=== PATIENT | male | born 1980 | race Caucasian/White ===

== ENCOUNTER 2022-05-12 | Emergency (ER) | payer BC ==
[~2022-05-12] VITALS: Ht 172.7 cm; Wt 98.4 kg
[2022-05-12 00:08] VITALS: BP 116/70
--- NOTE | 2022-05-12 01:53 | NUR ---
Dr. Ron examining patient.
[2022-05-12] MEDS ORDERED: HYDR25SU91 RC (02:12)
[2022-05-12] MEDS ORDERED: BACI1PAC6 TP (02:12)
[2022-05-12 02:54] VITALS: BP 116/70
--- NOTE | 2022-05-12 02:55 | NUR ---
Patient discharged with v/s stable. Written and verbal after care instructions given and explained. Patient alert, oriented and verbalized understanding of instructions. Ambulatory with steady gait. All questions addressed prior to discharge. ID band removed. Patient advised to follow up with PMD. Rx of BACITRACIN ZINC AND HYDROCORTISONE ACETATE given. Patient educated on indication of medication including possible reaction and side effects. Opportunity to ask questions provided and answered.
== END 2022-05-12 02:50 | disposition home or self-care (01) ==
LOC: MED
DX: K64.9 Unspecified hemorrhoids (principal)
CPT/HCPCS: 99282

== ENCOUNTER 2022-08-27 16:31 | Emergency (ER) | payer BC ==
[~2022-08-27] VITALS: Ht 172.7 cm; Wt 104.8 kg
[~2022-08-27 16:31] MED LIST: BACI1PAC6 TP; HYDR25SU91 RC
[2022-08-27 16:34] VITALS: BP 152/62
--- NOTE | 2022-08-27 16:42 | NUR ---
Patient ambulated with steady gait to bed 5.
[2022-08-27 18:22] LABS: BASOPHILS % (AUTO) 0.4 % (0.0-2.0); EOSINOPHILS # (AUTO) 0.1 K/uL (0-0.4); EOSINOPHILS % (AUTO) 0.6 % (0.0-4.0); HEMATOCRIT 43.6 % (36-52); HEMOGLOBIN 15.6 g/dL (12.0-18.0); LYMPHOCYTES % (AUTO) 22.7 % (20.5-51.1); MEAN CORPUSCULAR HEMOGLOBIN 32 pg (27-31); MEAN CORPUSCULAR HGB CONC 36 g/dL (33-37); MEAN CORPUSCULAR VOLUME 90.3 fL (80-94); MONOCYTES # (AUTO) 0.7 K/uL (0.8-1.0); MONOCYTES % (AUTO) 7.6 % (1.7-9.3); NEUTROPHILS % (AUTO) 68.7 % (42.2-75.2); PLATELET COUNT (AUTO) 205 K/uL (140-450); RED BLOOD CELL COUNT(AUTO) 4.83 MIL/uL (4.20-6.10); RED CELL DISTRIBUTION WIDTH 13.9 % (11.6-13.7); WHITE BLOOD COUNT (AUTO) 8.8 K/uL (4.8-10.8)
--- NOTE | 2022-08-27 18:24 | NUR ---
42/M PRESENTS TO ED WITH C/O CHEST PAIN RADIATING TO BACK, COUGH AND SOB X1 WEEK. PATIENT REPORTS HE FELT SYMPTOMS WORSENING AFTER WORKING OUT TODAY, PATIENT STATES NEGATIVE AT HOME COVID TEST TODAY. DENIES INJURY OR TRAUMA BUT STATES AT WORK IS REQUIRED TO MOVE BOXES, PATIENT DENIES N/V/D, FEVERS, CHILLS, DENIES RECENT SICK CONTACTS.
[2022-08-27 18:40] LABS: ALBUMIN 3.9 g/dL (3.4-5.0); ASPARTATE AMINOTRANSFERASE 31 U/L (15-37); CARBON DIOXIDE 25.8 mmol/L (21-32); CHLORIDE 105 mmol/L (98-107); CREATININE 1.1 mg/dL (0.6-1.3); GFR ARICAN-AMERICAN 94 mL/min (>90); GLUCOSE 115 mg/dL (74-106); POTASSIUM 3.8 mmol/L (3.5-5.1); SODIUM SERUM 140 mmol/L (136-145); TOTAL BILIRUBIN 0.6 mg/dL (0.0-1.0); UREA NITROGEN, BLOOD 11 mg/dL (7-18)
--- NOTE | 2022-08-27 19:18 | NUR ---
Pt report given to AMENA ESPANA. Transfer of care at this time.
[2022-08-27] MEDS ORDERED: methylPREDNISolone SS 125 MG/2 ML VIAL IVP ONE (19:30)
[2022-08-27] MEDS ORDERED: PRED20TA5 PO (19:49)
[2022-08-27] MEDS ORDERED: IBUP-2809 PO (19:50)
--- NOTE | 2022-08-27 20:18 | NUR ---
PT WAITING IN LOBBY FOR RESULT OF REPEAT LABS.
--- NOTE | 2022-08-27 20:23 | NUR ---
PT IS IN WAITING ROOM PENDING TROP RESULTS AND DISPO PAPERWORK
--- NOTE | 2022-08-27 20:26 | NUR ---
C/O COUGH AND SOB X1WEEK . SPO2 99% RA. DENIES SOB OR CP AT THIS TIME. PT IS A&OX4 SITTING UP IN CHAIR SPEAKING IN FULL SENTENCES. SKIN WARM DRY AND INTACT. SECOND TROP DRAWN , PENDING RESULTS. NKDA NO HX
[2022-08-27 20:50] VITALS: BP 122/67
--- NOTE | 2022-08-27 20:50 | NUR ---
Patient discharged with v/s stable. Written and verbal after care instructions given and explained. Patient alert, oriented and verbalized understanding of instructions. Ambulatory with steady gait. All questions addressed prior to discharge. ID band removed. Patient advised to follow up with PMD. Rx of PREDNISONE, IBUPROFEN given. Patient educated on indication of medication including possible reaction and side effects. Opportunity to ask questions provided and answered.
== END 2022-08-27 20:50 | disposition home or self-care (01) ==
LOC: MED 16:31
DX: J40 Bronchitis, not specified as acute or chronic (principal); F17.210 Nicotine dependence, cigarettes, uncomplicated; Z71.6 Tobacco abuse counseling
CPT/HCPCS: 36415; 71045; 80053; 84484; 85025; 85379; 93005; 96374; 99285; J2930; Q0092

== ENCOUNTER 2023-06-23 19:55 | Emergency (ER) | payer BC ==
[~2023-06-23] VITALS: Ht 170.2 cm; Wt 103.4 kg
[~2023-06-23 19:55] MED LIST changes: +BACI-418 TP; -BACI1PAC6 TP; +IBUP-2809 PO; +PRED20TA5 PO
[2023-06-23 20:00] VITALS: BP 139/77; PULSE 90; RESP 16; TEMP 97.6; O2SAT 97
[2023-06-23] MEDS ORDERED: KETOROLAC 30 MG/ML VIAL IVP ONE (21:00)
[2023-06-23] MEDS ORDERED: NACL 0.9% 1,000 ML IV SCH (21:00)
[2023-06-23 21:48] LABS: BASOPHILS % (AUTO) 0.4 % (0.0-2.0); EOSINOPHILS # (AUTO) 0.1 K/uL (0-0.4); EOSINOPHILS % (AUTO) 0.6 % (0.0-4.0); HEMATOCRIT 40.2 % (36-52); LYMPHOCYTES # (AUTO) 2.6 K/uL (2.0-11.5); LYMPHOCYTES % (AUTO) 25.7 % (20.5-51.1); MEAN CORPUSCULAR HEMOGLOBIN 32 pg (27-31); MEAN CORPUSCULAR HGB CONC 35 g/dL (33-37); MEAN CORPUSCULAR VOLUME 91.9 fL (80-94); MONOCYTES # (AUTO) 0.8 K/uL (0.8-1.0); MONOCYTES % (AUTO) 7.7 % (1.7-9.3); NEUTROPHILS # (AUTO) 6.7 K/uL (1.8-7.7); NEUTROPHILS % (AUTO) 65.6 % (42.2-75.2); PLATELET COUNT (AUTO) 188 K/uL (140-450); RED BLOOD CELL COUNT(AUTO) 4.37 MIL/uL (4.20-6.10); RED CELL DISTRIBUTION WIDTH 14.1 % (11.6-13.7); WHITE BLOOD COUNT (AUTO) 10.2 K/uL (4.8-10.8)
[2023-06-23 21:48] LABS: APPEARANCE,URINE CLEAR (CLEAR); BILIRUBIN,URINE NEGATIVE (NEGATIVE); BLOOD, URINE NEGATIVE (NEGATIVE); COLOR,URINE YELLOW (YELLOW); LEUKOCYTE ESTERASE ,URINE NEGATIVE (NEGATIVE); NITRITE, URINE NEGATIVE (NEGATIVE); PH,URINE 6.5 (5.0-9.0); PROTEIN,URINE NEGATIVE (NEGATIVE); UGLUCOSE NEGATIVE (NEGATIVE); UROBILINOGEN,URINE 0.2 EU/dL (0.2 - 1)
[2023-06-23 21:59] LABS: ALBUMIN 3.8 g/dL (3.4-5.0); ANION GAP 13.5 (8-16); CALCIUM 8.8 mg/dL (8.5-10.1); CARBON DIOXIDE 27.4 mmol/L (21-32); CREATININE 1.4 mg/dL (0.6-1.3); POTASSIUM 3.9 mmol/L (3.5-5.1); TOTAL BILIRUBIN 0.5 mg/dL (0.0-1.0); TOTAL PROTEIN, SERUM 7.4 g/dL (6.4-8.2)
== END 2023-06-24 00:41 | disposition home or self-care (01) ==
LOC: MED 19:55
DX: N18.9 Chronic kidney disease, unspecified (principal); R10.9 Unspecified abdominal pain; Z79.899 Other long term (current) drug therapy
CPT/HCPCS: 36415; 74176; 80053; 81003; 85025; 96361; 96374; 99285; J1885; J7030